=== PATIENT | male | born 1980 | race Caucasian/White ===

== ENCOUNTER 2023-04-19 08:31 | Outpatient (CLI) | payer BC, SELFPAY | END 2023-04-19 08:32 | disposition home or self-care (01) | PROVIDERS: PCP Family Medicine; Visit Provider Family Medicine | DX: E78.2 Mixed hyperlipidemia (principal) | CPT/HCPCS: 80048; 80061 ==

== ENCOUNTER 2025-04-14 15:43 | Outpatient (CLI) | payer OTHER, SELFPAY ==
[2025-04-14 23:18] LABS: Chlamydia DNA Amplified* NOT DETECTED (No Detected); GC DNA Amplified* NOT DETECTED (No Detected)
== END 2025-04-14 15:44 | disposition home or self-care (01) ==
PROVIDERS: PCP Family Medicine; Visit Provider Physician Assistant
DX: R30.0 Dysuria (principal)
CPT/HCPCS: 87491; 87591

== ENCOUNTER 2025-04-14 15:43 | Outpatient (CLI) | payer OTHER, SELFPAY | END 2025-04-14 15:44 | disposition home or self-care (01) | LOC: NFLDREF 15:46 | PROVIDERS: PCP Family Medicine; Visit Provider Physician Assistant | DX: R30.0 Dysuria (principal); K46.9 Unspecified abdominal hernia without obstruction or gangrene; Z71.1 Person with feared health complaint in whom no diagnosis is made | CPT/HCPCS: 86703; 86780 ==

== ENCOUNTER 2025-04-20 14:26 | Emergency (ER) | payer OTHER, SELFPAY ==
--- OUTSIDE RECORDS SUMMARY | 2025-04-20 14:31 | XMS_ITS | Clinical Summary ---
Author Organization [facility] Address [address] [place] [address] Care Team Providers Care Civil Preparedness Coordinator Name Role Phone Kenney Mendoza MD Primary Care Provider [phone] Allergies Active AllergyReactionsCriticalityNoted DateCommentsDust MitesRunny Nose,Itching 03/30/2022 Medications MedicationSigDispense QuantityRefillsLast FilledStart DateEnd DateStatus VENTOLIN HFA 90 mcg/actuation inhaler 2 Puffs every 4 hours if needed.02/02/2020Active fluticasone furoate-vilanteroL (BREO ELLIPTA) 200mcg/25mcg inhaler Inhale 1 Dose by mouth.01/27/2020Active LORazepam (ATIVAN) 0.5 mg tab Take 0.5 mg by mouth every 8 hours if needed.11/13/2019Active FLUoxetine (PROZAC) 20 mg capsule Take 20 mg by mouth once daily.03/09/2022ctive Breztri Aerosphere 160-9-4.8 mcg/actuation HFAA INHALE 2 INHALATIONS TWO TIMES A DAY4Active Active Problems No known active problems Social History Tobacco UseTypesPacks/DayYears UsedDateSmoking Tobacco: NeverSmokeless Tobacco: NeverSocial ConnectionsAnswerDate RecordedFrequency of Communication with Friends and FamilyNot on file04/30/2021Financial Resource StrainAnswerDate RecordedDifficulty of Paying Living ExpensesNot on file04/30/2021ifficulty of Paying Living ExpensesNot on file04/30/2021ex and Gender InformationValueDate RecordedSex Assigned at BirthNot on fileLegal OkyWjfw75/13/2020 8:19 AM OFFICE COMMUNICATION PROFESSOR Gender IdentityNot on fileSexual OrientationNot on file Last Filed Vital Signs Vital SignReadingTime TakenCommentsBlood Gnhzvooc068/9911 11:38 AM OFFICE COMMUNICATION PROFESSOR Clgcc002403/08/2024 11:38 AM TPSDzdgafnxbiq76.2 ??C (97.1 ??F)03/08/2024 11:38 AM CSTRespiratory Iqvw810005/08/2023 11:38 AM CSTOxygen Bhvrxdkjma53%03/08/2024 11:38 AM CSTInhaled Oxygen Concentration--Jmuxpa33 kg (156 lb 9.6 oz)06/30/2023 4:14 PM JCCKzwgun302.3 cm (5' 9)03/30/2022 9:42 AM CSTBody Mass Index23.13105/31/2021 9:42 AM OFFICE COMMUNICATION PROFESSOR Plan of Treatment Health MaintenanceDue DateLast DoneCommentsTetanus juajpwr7004/09/1991Depression screening for age 12+1992HIV for age 15-6504/09/1995BMI (ht and wt on same day) for age 18+1998Hepatitis C screening for age 18-7904/09/1998Hepatitis B series for 19+ (1 of 3 - 19+ 3-dose series)1999HPV series for age 9-45 (1 - 3-dose SCDM series)2007COVID-19 vaccine series (2024-26 season) 510/, 10/25/2021, 04/19/2021, Additional history existsInfluenza Vaccine (#1)5Colonoscopy through age 7504/09/2025Lipids for age 45-75 2025Pneumococcal series for age 6-49Aged OutNo longer eligible based on patient's age to complete [place] [address] * Guarantor: Uche Ruiz DAccount TypeRelation to PatientDate of BirthPhone Billing AddressMotor DpgepqwFvqt1980 [id number] [address] [address] Care Teams Team MemberRelationshipSpecialtyStart [place] [address] [place] [address] [id number] PCP - Lsghsrz81/13/20
--- OUTSIDE RECORDS SUMMARY | 2025-04-20 14:31 | XMS_ITS | Clinical Summary ---
Author Organization [facility] Address [address] [place] [address]. [place] [address] Care Team Providers Care Tieing Machine Operator Name Role Phone Kenney Mendoza MD Primary Care Provider [phone] Allergies No known active allergies Social History Tobacco UseTypesPacks/DayYears UsedDateSmoking Tobacco: Never AssessedSex and Gender InformationValueDate RecordedSex Assigned at BirthNot on fileLegal Sex Male04/25/2012 7:08 PM CSTGender IdentityNot on fileSexual OrientationNot on file Last Filed Vital Signs Vital SignReadingTime TakenCommentsBlood Syasjrux372/9007 10:00 AM CDT Pizdg6091/15/2020 10:00 AM TVCYpwtpqrmtgb20.9 ??C (98.5 ??F)11/12/2019 8:48 AM CDTRespiratory Rvbd053311/12/2019 8:48 AM CDTOxygen Thmhyijlsm46%11/12/2019 10:00 AM CDTInhaled Oxygen Concentration--Sfaxes60.5 kg (140 lb)11/12/2019 8:48 AM CDT Utqrlw232.3 cm (5' 9)11/12/2019 8:48 AM CDTBody Mass Index20.6707 8:48 AM CDT Plan of Treatment Not on file Insurance * Guarantor: Donta Ruiz TypeRelation to PatientDate of BirthPhone Billing AddressPersonal/SnrymxMmvo1980 [id number] [address] [place] [address] Care Teams Team MemberRelationshipSpecialtyStart DateEnd Date Kenney Mendoza MD [facility]
--- OUTSIDE RECORDS SUMMARY | 2025-04-20 14:31 | XMS_ITS | Clinical Summary ---
Author Organization [facility] Address [address] [place] [address] Care Team Providers Care Tube Drawer Name Role Phone Kenney Mendoza MD Primary Care Provider [phone] Source Comments You are receiving this document as you are listed as the primary care provider,follow-up provider, or the patient has been referred to you for consultation.This is in compliance with the Medicare andDay[facility] Hospitalcaid EHR Incentive Program,which states Providers who transition their patient to another setting of careor provider of care or refers their patient to another provider of care shouldprovide summary care record for each transition of care or referral. [employer] Allergies No known active allergies Medications MedicationSigDispense QuantityRefillsLast FilledStart DateEnd DateStatus cetirizine (ZYRTEC) 10 MG tablet Take 10 mg by mouth daily (every 24 hours).07/13/2015Active ALBUterol sulfate HFA 108 (90 Base) MCG/ACT inhaler Inhale 2 Puffs every 4 hours as needed (Inhale 2 puffs every 4 hours as needed.). 1 Each Active FLUoxetine (PROZAC) 20 MG capsule Indications:DIMAS (generalized anxiety disorder) (HRC)Take 1 Capsule by mouth daily. 90 Capsule Active LORazepam (ATIVAN) 0.5 MG tablet Indications:DIMAS (generalized anxiety disorder) (HRC)Take 1 Tablet by mouth every 8 hours as needed for Anxiety. 10 Tablet 1Active fluticasone-vilanterol (BREO ELLIPTA) 200-25 MCG/INH inhaler Inhale 1 Dose daily. 1 Each 1Active Active Problems ProblemNoted DateDiagnosed DateGAD (generalized anxiety disorder)04/16/2019House dust mite tdfeocv9411/05/2018Seasonal allergic rhinitis due to xmavvv4011/05/2018 Gallbladder polyp08/26/2018Mild persistent hqjkif5910/24/2010 Overview (03/05/2017): Follows Allergy Resolved Problems ProblemNoted DateDiagnosed DateResolved DateAbnormal LFTs Kphoomcxfvsnt90AnxietyMild intermittent xincra33 Immunizations ImmunizationAdministration DatesNext RoeNBfW7912/06/1984HepA Adult (19+ yrs) 04/17/2019HepB Adult (Engerix-B, 20+ yrs, 3 dose series)06/21/2011,06/21/2011, 10/24/2010,10/24/2010,08/22/2010,08/22/2010Influenza IIV4 (Quadrivalent) 0.5mL (57863)04/17/2019TDAP (BOOSTRIX)08/22/2010Td09/12/2007,09/12/2007Tdap08/22/2010 Typhoid (Typhim Vi, IM)04/17/2019 Family History Medical HistoryRelationNameCommentsAnxietyBirth FatherDepressionBirth Father HyperlipidemiaBirth FatherAnxietyBirth MotherHyperlipidemiaBirth Mother HyperlipidemiaMaternal GrandfatherHyperlipidemiaMaternal Grandmother HyperlipidemiaPaternal GrandfatherHyperlipidemiaPaternal GrandmotherDepression Sister 2hospitalized x 1Cholecystectomy [Other]Sister 3Cancer, BreastNegative Family HistoryGrandmotherRelationNameStatusCommentsBirth FatherAliveBirth Mother AliveMaternal GrandfatherAliveMaternal GrandmotherAlivePaternal GrandfatherAlive Paternal GrandmotherAliveSister 1AliveSister 2Sister 3 Social History Tobacco UseTypesPacks/DayYears UsedDateSmoking Tobacco: NeverSmokeless Tobacco: NeverAlcohol UseStandard Drinks/WeekCommentsYes0 (1 standard drink = 0.6 oz pure alcohol)occPHQ-2AnswerDate RecordedPHQ-2 Zypla573Sex and Gender InformationValueDate RecordedSex Assigned at BirthNot on fileLegal SexMale 02/07/2012 6:16 AM CDTGender IdentityNot on fileSexual OrientationNot on file OccupationIndustryJob Start DateJob End DateComputer ProgrammerNot on fileNot on fileNot on file Last Filed Vital Signs Vital SignReadingTime TakenCommentsBlood Vgxfuyqs750/9303 11:37 AM THEATER COMPANY PRODUCER Efasb383707/02/2019 11:37 AM WAUIjbudqehkgw59.6 ??C (97.8 ??F)04/24/2019 3:46 PM CSTRespiratory Hlsq846107/02/2019 11:37 AM CSTOxygen Huzpedscuz502%04/24/2019 3:46 PM CSTInhaled Oxygen Concentration--Ztypze75.1 kg (141 lb 6.4 oz)06/13/2019 8:19 AM IBLSwqlfm428.3 cm (5' 9)04/21/2020 8:04 AM CSTPt reportedBody Mass Index20.8807 9:10 AM CDT Plan of Treatment Health MaintenanceDue DateLast DoneCommentsColon Cancer Screening Plan Due 1980HIV Screening (Preventive Services)1996Pneumococcal Vaccine (1 of 2 - PCV)1999Adult Preventive VisitCholesterol , 07/04/2011sthma ACT (score of 20 or higher)08/27/2019 08/26/2018, 09/18/2017, 08/29/2016, Additional history existsHepA Vaccine (2 of 2 - Risk 2-dose series)COVID-19 Vaccine ( season) /, 04/19/2021, 09/15/2020, Additional history existsInfluenza Vaccine (#1)511/01/2022, 02/16/2021, 02/14/2020, Additional history existsDTaP/Tdap/Td Vaccine (5 - Tdap), 08/22/2010, 08/22/2010, Additional history existsZoster/Shingles Vaccine (1 of 2)2030 HepB NayolqdAxwtpilnc01/22/2012, 06/21/2011, 10/24/2010, Additional history existsHep C Screening (Preventive Services)Klizrnuny01/30/2014HPV Vaccine (No Doses Required)CompletedHib VaccineAged OutNo longer eligible based on patient's age to complete this topicIPV (Polio) VaccineAged OutNo longer eligible based on patient's age to complete this topicMCV4 VaccineAged OutNo longer eligible based on patient's age to complete this topicMeningococcal B VaccineAged OutNo longer eligible based on patient's age to complete this topic Procedures Procedure NamePriorityDate/TimeAssociated DiagnosisCommentsHEPATITIS PANEL ACUTE WITH REFLEX TO XOTORVOPBPNEMorphaa90/30/2014 8:43 AM CDT Abnormal LFTs LIPID PANEL & DIRECT LDL (IF NEEDED)Fsweget2912/23/2013 8:24 AM CDT Screening, lipid from Last 3 Months or Most Recently Relevant to Health Maintenance Results * HEPATITIS PANEL ACUTE WITH REFLEX TO CONFRIMATION (01/27/2014 8:43 AM CDT) ComponentValueRef RangeTest MethodAnalysis TimePerformed AtPathologist SignatureHepatitis A Virus AB IgMNon ReactNon ReactiveHP CONVERSIONHepatitis B Core IgM AntibodyNegativeNegativeHP CONVERSIONHep B Surf AgNegativeNegativeHP CONVERSIONHepatitis C CdvdyulwEaa-RpowdIle-DfarnjfyVX CONVERSIONSpecimen (Source)Anatomical Location / LateralityCollection Method / VolumeCollection TimeReceived Time01/27/2014 8:43 AM CDT01/27/2014 12:34 PM CDT Narrative Transcriptions 06/08/2016 3:33 PM CSTNotes Recorded by Maryana Camara DO on 01/27/2014 at 3:43 PMResults with interpretation of results released to [employer]. Please see note for further details.Recommend given mild elevation in alt, remainder of testing normal and normal Ultrasound, repeat ALT, AST in 3 months. Authorizing ProviderResult TypeResult StatusSthieu Camara DOLAB_1Final Result Performing OrganizationAddressCity/State/ZIP CodePhone Number HP CONVERSION * Lipid Panel and Direct LDL(If Needed) (12/23/2013 8:24 AM CDT)ComponentValue Ref RangeTest MethodAnalysis TimePerformed AtPathologist SignatureCholesterol 1990 - 200 mg/dLHP EGCKRFHTVAIhdimnjbpjsqu707 - 149 mg/dLHP CONVERSIONHDL Spcglucgstr39>39 mg/dLHP CONVERSIONCholesterol/HDL Ratio Screen3.8HP CONVERSIONLDL Xowvwttlgl71167 - 130 mg/dLHP CONVERSIONHours Rjyzxng22BZ CONVERSIONSpecimen (Source)Anatomical Location / LateralityCollection Method / VolumeCollection TimeReceived Time12/23/2013 8:24 AM CDT12/23/2013 11:57 AM CDT Narrative HP CONVERSION - 12/23/2013 2:44 PM CDT Performed at [facility], [address] [place] [address] Transcriptions 06/08/2016 4:34 PM CSTNotes Recorded by Maryana Camara DO on 12/25/2013 at 8:39 AM- Results with interpretation of results released to [employer]. Please see note for further details. Authorizing ProviderResult TypeResult StatusStaci Alisia Camara DOLAB_1Final Result Performing OrganizationAddressCity/State/ZIP CodePhone Number HP CONVERSION from Last 3 Months or Most Recently Relevant to Health Maintenance Insurance * Guarantor: Uche Ruiz TypeRelation to PatientDate of PhoneBilling AddressPersonal/QuwufiUtmb1980 [address] [place] [address] * Guarantor: Uche Ruiz TypeRelation to PatientDate of PhoneBilling AddressPersonal/PfwdvmQeww1980 [address] [place] [address] * Guarantor: Uche Ruiz TypeRelation to PatientDate of PhoneBilling AddressMVA/EWBBnsh95 1980 [address] [place] [address] Care Teams Team MemberRelationshipSpecialtyStart [place] [address] [place] [address] [facility]11/16/15
[2025-04-20 14:38] VITALS: BP 130/84; PULSE 98; RESP 20; TEMP 36.5; O2SAT 99; BMI 22.4
--- NOTE | 2025-04-20 16:59 | ED_ITS ---
HPI - General Adult General Date Seen: 04/20/25 Chief complaint: Groin Pain Stated complaint: Worsening Hernia Time Seen by Provider: 04/20/25 16:59 Source: patient, RN notes reviewed and old records reviewed Mode of arrival: ambulatory Limitations: no limitations History of Present Illness HPI narrative: Uche is a very pleasant 45-year-old male with history of GERD, hyperlipidemia, recent diagnosis of right inguinal hernia who comes to the [facility] for evaluation regarding increased size of that hernia and some abdominal pain. Uche was scheduled to see the surgeon tomorrow for consultation. Yesterday he noticed that his right groin was somewhat uncomfortable any rated the pain a 1/10. He also noted that the bulging in the groin seems to be larger than before. Today he states the pain is approximately a 3/10, does not change with lying down or standing up but is associated with 2 days of constipation, mild upper abdominal discomfort or a dull feeling in the right upper quadrant. Patient denies nausea or vomiting but has had some GERD of which he has a history. He feels of fullness in his lower abdomen but denies any abdominal distension. Related Data Home Medications ?Medication ?Instructions ?Recorded ?Confirmed cetirizine 10 mg capsule (Zyrtec) 10 mg PO QDAY 04/20/25 fluorouracil 5 % topical cream 1 applic topical 12/02/24 Previous Rx's ?Medication ?Instructions ?Recorded albuterol sulfate 90 mcg/actuation 2 puff inhalation Q DAY PRN 04/19/23 aerosol inhaler shortness of breath or wheez ing #8.5 grams fluoxetine 20 mg capsule 20 mg PO DAILY #90 caps 03/01 10/21 fluticasone furoate 100 1 inh inhalation QDAY #60 ea 03/25/24 mcg-vilanterol 25 mcg/dose inhalation powder (Breo Ellipta) lorazepam 0.5 mg tablet 0.5 mg PO Q8H PRN anxiety #2 0 tabs 03/26/24 omeprazole 20 mg capsule,delayed 20 mg PO QDAY #90 cap s 12/02/24 release Allergies Allergy/AdvReac Type Severity Reaction Status Date / Time house dust Allergy Mild Congested Verified 04/20/25 14:37 Review of Systems Status of ROS: Reports: 10 or more systems reviewed and unremarkable except as noted in History and below Const: Denies: fever or chills ENMT: Denies: nasal congestion Cardio: Denies: chest pain or lightheadedness Resp: Denies: cough GI: Reports: abdominal pain and constipation; Denies: nausea, vomiting, diarrhea or blood in stool : Denies: painful urination or urinary frequency Musculo: Denies: back pain PFSH PFSH Medical History Mixed hyperlipidemia ?E78.2 - Mixed hyperlipidemia (ICD-10) History of cardiac murmur ?Z86.79 - Personal history of other diseases of the circulatory system (ICD- 10) Generalized anxiety disorder with panic attacks ?F41.1 - Generalized anxiety disorder (ICD-10) ?F41.0 - Panic disorder [episodic paroxysmal anxiety] (ICD-10) Basal cell carcinoma (BCC) ?C44.91 - Basal cell carcinoma of skin, unspecified (ICD-10) Mild persistent asthma ?J45.30 - Mild persistent asthma, uncomplicated (ICD-10) Family History Family/Other Breast cancer Heart disease Father Prostate cancer, Onset Age: 65 Skin cancer Other Depression Social History Narrative: single, homosexual, no kids, computer systems support specialist, 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[employer], nonsmoker, social EtOH What is your current living situation?: I presently have a place to live Problems where you live: no known problems In the past 12 months, utilities in danger of being shut off: no In past 12 months, lack of transportation kept you from medical appts, meetings, work, or getting things needed for daily living: no In the past 12 mos, have been you worried that your food would run out before you had money to buy more?: never true In the past 12 mos, the food you bought just didn't last and you didn't have money to buy more?: never true Smoking Status: Never smoker How often does anyone, including family, friends and others, physically hurt you : never How often does anyone, including family, friends and others, insult or talk down to you: never How often does anyone, including family, friends and others, threaten you with harm: never How often does anyone, including family, friends and others, scream or curse at you: never Exam Narrative: Exam Narrative: Alert and oriented, very pleasant gentleman in no acute distress. Speech and mentation normal. No respiratory distress. Heart with regular rate and rhythm and lungs are clear. Abdomen is soft. Bowel sounds are present. Right inguinal area shows a plum sized area of fullness upon standing. Much less subtle when laying down. I do palpate this area there is no significant discomfort. Palpation of the right testicle shows no evidence of of bulging or discomfort. Const: Vital Signs, click to edit/add: Vital Signs - 24 hr 04/20/25 14:38 04/20/25 19:31 Temperature 97.7 F Pulse Rate 84 Pulse Rate [Pulse Oximeter] 98 Respiratory Rate 20 16 Blood Pressure 127/91 H Blood Pressure [Ri ght Upper Arm] 130/84 Pulse Oximetry 99 99 Oxygen Delivery Me thod Room Air Room Air Documenting provider has reviewed patient's vital signs: yes Course Course ED Course: At this time patient clearly has right inguinal hernia. It is reducible but my concern is that patient has been constipated and has lower abdominal pain at this time. Do have concern that patient has intermittent obstructive symptoms. He certainly is not vomiting nor does he have a fever. It he cannot recall any specific instance in the last few days where he was lifting or doing exercise that would of increase the size of the hernia. With this in mind I do speak to center consultant Dr. Blanco. At this time plan on IV placement with abdominal and pelvic CT with contrast. Reevaluation(s) Reevaluation #1: Patient stable in the ED. CT notes no significant abnormality except thickened bladder wall. Will order UA Vital Signs Vital signs: Initial Vital Signs Temperature 97.7 F 04/20/25 14:38 Temperature Source Temporal Artery Scan 04/20/25 14:38 Pulse Rate 98 04/20/25 14:38 Respiratory Rate 20 04/20/25 14:38 Blood Pressure 130/84 04/20/25 14:38 Blood Pressure Mean 99 04/20/25 14:38 Pulse Oximetry 99 04/20/25 14:38 Oxygen Delivery Method Room Air 04/20/25 14:38 Vital Signs Temperature 97.7 F 04/20/25 14:38 Pulse Rate 98 04/20/25 14:38 Respiratory Rate 20 04/20/25 14:38 Blood Pressure 130/84 04/20/25 14:38 Pulse Oximetry 99 04/20/25 14:38 Oxygen Delivery Method Room Air 04/20/25 14:38 Temperature 97.7 F 04/20/25 14:38 Pulse Rate 84 04/20/25 19:31 Respiratory Rate 16 04/20/25 19:31 Blood Pressure 127/91 H 04/20/25 19:31 Pulse Oximetry 99 04/20/25 19:31 Oxygen Delivery Method Room Air 04/20/25 19:31 Medications Administered Medications: Discontinued Medications Generic Name Dose Route Start Last Admin Trade Name Freq PRN Reason Stop Dose Admin Sodium Chloride 500 mls @ 500 mls/hr 04/20/25 17:11 04/20/25 19:27 0.9 % Sodium Chloride 500 Ml IV 04/20/25 18:10 Infused .Q1H REYNALDO Infusion Medical Decision Making MDM Narrative Medical decision making narrative: 1. Right inguinal hernia - reassurance and patient may follow up with surgeon as scheduled tomorrow. CT showed small fat containing right inguinal hernia. If Increased bulging, worsening pain or fever occur, recommend returning to the ED tonight. 2. Disposition - reassurance and home at this time. Return as needed. UA collected. I will call patient if positive. Addendum: Neg UA Medical Records Medical records reviewed: Yes I reviewed the patient's medical records Medical records narrative: Reviewed most recent visit in urgent care Lab Data Lab results reviewed: Yes I reviewed the patient's lab results Labs: Lab Results 04/20/25 Range/Units 19:36 Urine Color Yellow (Yellow) Urine Appearance Clear (Clear) Urine pH 7.0 (5.0-8.5) Ur Specific [place] 1.010 (1.000-1.030) Urine Protein Negative (Negative) Urine Glucose (UA) Negative (Negative) Urine Ketones Negative (Negative) Urine Blood Negative (Negative) Urine Nitrite Negative (Negative) Urine Bilirubin Negative (Negative) Urine Urobilinogen 0.2 (0.2-1.0) Ur Leukocyte Esterase Negative (Negative) Urine RBC 0-2 (0-2) Urine WBC 0-2 (0-5) Ur Squamous Epith Cells None (None-Few) Urine Bacteria None (None) Imaging Data CT scan - abdomen: Attestation: I have reviewed the pertinent imaging results. My impression: I do not note obstruction. Radiologist's impression: ower chest: The visualized lower lungs are aerated. No pleural or pericardial effusion. ABDOMEN: Liver: Normal enhancement. Subcentimeter hypodensity in the right hepatic lobe, too small to characterize however statistically a cyst. Gallbladder and biliary: Normal gallbladder without radiopaque stone. Normal caliber bile ducts. Spleen: Normal size and enhancement. Pancreas: Normal enhancement without peripancreatic inflammatory changes or ductal dilatation. Adrenal glands: Normal adrenal glands. Kidneys and ureters: Normal enhancement. No radio-opaque calculi. No hydroureteronephrosis. GI tract: The stomach is relatively decompressed. Normal caliber small and large bowel loops. Normal appendix. Vascular structures: Normal caliber abdominal aorta. Lymph nodes: No lymphadenopathy in the abdomen or pelvis by size criteria. Peritoneum: No free air, free fluid, or focal drainable fluid collection. Tiny fat containing right inguinal hernia. PELVIS: Genitourinary system: Although relatively decompressed there is suggestion of circumferential wall thickening of the urinary bladder. Recommend correlation with urinalysis if not already performed to assess for underlying cystitis. Normal-sized prostate. SKELETAL STRUCTURES AND SOFT TISSUES: No suspicious lytic or blastic lesions. IMPRESSION: No discrete acute process in the abdomen or pelvis. No obstruction. No hydroureteronephrosis. Tiny fat containing right inguinal hernia. Although relatively decompressed there is suggestion of circumferential wall thickening of the urinary bladder. Recommend correlation with urinalysis if not already performed to assess for underlying cystitis. Discharge Plan Discharge Clinical Impression: Hernia, inguinal, right Patient Disposition: Home, Self-Care Condition: Unchanged Instructions: Inguinal Hernia (ED) Additional Instructions: at this time recommend light activity and no heavy lifting of weights. Follow up tomorrow as scheduled with the surgeon. If you suddenly developed increasing pain, inability to push the hernia back in, vomiting or worsening symptoms please come back to the emergency room. Thank you for leaving a urine sample. I will call you if the urine sample suggest evidence of UTI. The urine will be also sent for urine culture and should that be positive you will receive a call in 2-3 days. Prescriptions: No Action albuterol sulfate 90 mcg/actuation HFA aerosol inhaler 2 puff inhalation QDAY PRN (Reason: shortness of breath or wheezing) Qty: 8.5 12RF Zyrtec 10 mg capsule 10 mg PO QDAY fluoxetine 20 mg capsule 20 mg PO DAILY Qty: 90 3RF fluticasone furoate-vilanterol [Breo Ellipta] 100-25 mcg/dose blister with device 1 inh inhalation QDAY Qty: 60 12RF lorazepam 0.5 mg tablet 0.5 mg PO Q8H PRN (Reason: anxiety) Qty: 20 0RF fluorouracil 5 % cream 1 applic topical Rx Instructions: APPLY TO AFFECTED AREAS TWICE DAILY FOR 2-3 WEEKS. REPEAT NEEDED. omeprazole 20 mg capsule,delayed release(DR/EC) 20 mg PO QDAY Qty: 90 3RF Follow Up/Referrals: Kenney Craft MD [Primary Care Provider, Family Practice] Stand Alone Forms: [employer] Info Instructions
--- NOTE | 2025-04-20 17:10 | CRLHL7_ITS ---
For Patients: As a result of the Century Cures Act, medical imaging exams and procedure reports are released immediately into your electronic medical record. You may view this report before your referring provider. If you have questions, please contact your health care provider. INDICATION: HERNIA, GROIN PAIN TECHNIQUE: CT abdomen and pelvis acquired with 75 cc Isovue 370 IV contrast. COMPARISON: None. FINDINGS: Lower chest: The visualized lower lungs are aerated. No pleural or pericardial effusion. ABDOMEN: Liver: Normal enhancement. Subcentimeter hypodensity in the right hepatic lobe, too small to characterize however statistically a cyst. Gallbladder and biliary: Normal gallbladder without radiopaque stone. Normal caliber bile ducts. Spleen: Normal size and enhancement. Pancreas: Normal enhancement without peripancreatic inflammatory changes or ductal dilatation. Adrenal glands: Normal adrenal glands. Kidneys and ureters: Normal enhancement. No radio-opaque calculi. No hydroureteronephrosis. GI tract: The stomach is relatively decompressed. Normal caliber small and large bowel loops. Normal appendix. Vascular structures: Normal caliber abdominal aorta. Lymph nodes: No lymphadenopathy in the abdomen or pelvis by size criteria. Peritoneum: No free air, free fluid, or focal drainable fluid collection. Tiny fat containing right inguinal hernia. PELVIS: Genitourinary system: Although relatively decompressed there is suggestion of circumferential wall thickening of the urinary bladder. Recommend correlation with urinalysis if not already performed to assess for underlying cystitis. Normal-sized prostate. SKELETAL STRUCTURES AND SOFT TISSUES: No suspicious lytic or blastic lesions. IMPRESSION: No discrete acute process in the abdomen or pelvis. No obstruction. No hydroureteronephrosis. Tiny fat containing right inguinal hernia. Although relatively decompressed there is suggestion of circumferential wall thickening of the urinary bladder. Recommend correlation with urinalysis if not already performed to assess for underlying cystitis. Please note that all CT scans at this facility use dose modulation, iterative reconstruction, and/or weight-based dosing when appropriate to reduce radiation dose to as low as reasonably achievable. Dictated by Kenney Johnson MD @ 04/20/2025 7:12:34 PM (Electronically Signed)
[2025-04-20] MEDS: 0.9 % SODIUM CHLORIDE 500 ML 500 ML IV (18:12)
[2025-04-20 19:31] VITALS: BP 127/91; PULSE 84; RESP 16; O2SAT 99
[2025-04-20 19:43] LABS: Appearance Urine Clear (Clear)
== END 2025-04-20 19:42 | disposition home or self-care (01) ==
PROVIDERS: Emergency Provider Family Medicine; PCP Family Medicine
DX: K40.90 Unilateral inguinal hernia, without obstruction or gangrene, not specified as recurrent (principal)
CPT/HCPCS: 74177; 81001; 99284; 99285; J7030; Q9967

== ENCOUNTER 2025-04-21 12:59 | Outpatient (CLI) | payer OTHER, SELFPAY | END 2025-04-21 13:00 | disposition home or self-care (01) | PROVIDERS: PCP Family Medicine; Visit Provider Family Medicine | DX: Z01.818 Encounter for other preprocedural examination (principal); E78.2 Mixed hyperlipidemia; R68.82 Decreased libido | CPT/HCPCS: 80048; 80061; 84403; 84443; 85025 ==

== ENCOUNTER 2025-04-27 09:14 | Day surgery (SDC) | payer OTHER, SELFPAY ==
[2025-04-27] VITALS (11 sets, daily range): BP systolic 112–133; BP diastolic 74–91; PULSE 73–83; RESP 12–21; TEMP 36.6–36.7; O2SAT 98–100; BMI 22.6
[2025-04-27] MEDS: LACTATED RINGERS 1000 ML 1,000 ML 100 ML IV (09:30)
[2025-04-27] MEDS: SODIUM CHLORIDE 0.9 % (FLUSH) 10 ML SYRINGE IVF (09:58)
[2025-04-27] MEDS: BUPIVACAINE 0.25% 30 ML INJECTION (12:20)
--- NOTE | 2025-04-27 12:30 | W.PM.H&PU ---
History & Physical Update History & Physical Update H&P Reviewed and patient assessed: No changes noted
--- NOTE | 2025-04-27 12:30 | PM.GSPRC ---
Operative Note Date of procedure: 04/27/25 Pre-op diagnosis: Right inguinal hernia Post-op diagnosis: Same Type of Procedure: Laparoscopic repair of right inguinal hernia Indications: The patient is a 45-year-old male who noticed a right groin bulge. He knew she thought it might be a lymph node was evaluated. It began to grow quite quickly which prompted him to be seen in the emergency department. There CT showed a fat containing right inguinal hernia. Because of his increase in pain and symptoms, I recommended repair and he agreed to proceed after discussion of risks and benefits Procedure Description: After discussing the risks and benefits of the procedure, the patient signed informed consent.? The operative site was marked and the patient was brought to the operating room and placed on the operating table in supine position.? Care was taken to pad the patient's pressure points.?? The patient was then intubated by anesthesia.?? The operative site was then prepped and draped in the usual sterile fashion.? A time-out was then performed. A curvilinear incision was made below the umbilicus. Dissection was carried down to subcutaneous tissue until the anterior rectus fascia was encountered. This was incised off the midline on the right. The rectus muscle fibers were then retracted exposing the posterior fascia. A port with a dissecting balloon was then introduced into the pre-preperitoneal space. This was inflated under direct vision. The balloon was deflated, removed, and a 10 mm working port was placed. The space was insufflated and a 10 mm 30-degree scope was then advanced into the space. Two 5 mm ports were placed in the midline under direct vision. Dissection began on the right side. Gordo's ligament and the pubic bone were exposed medially. Following this, dissection was carried out laterally. A direct defect was noted. The preperitoneal fat that was contained within the defect was reduced. The tissue was cleared off of pubic bone across the midline. The internal ring was examined. There was no cord lipoma. There was no hernia sac noted here. The peritoneum was dissected free from the cord structures and dissection was also taken out laterally to create a space for mesh. Once this was done, a piece of large Bard 3DMax mesh for the right side was then placed into the abdomen. This was position with a marker pointed medially. This was placed across midline to ensure adequate coverage of the direct defect. Once this was done, a Tacker was used to tack the mesh at Gordo's ligament and also more anteromedially on the abdominal wall medial to the direct defect. Mesh was then held in place while the abdomen was desufflated to ensure that it laid flat. 10 mL of 0.5% Marcaine were instilled into the preperitoneal space through a port. The ports were removed. The fascia from the infraumbilical port was closed with 0 Vicryl. The skin incisions were closed with absorbable subcuticular suture. Sterile dressings were then applied. The scrotum was examined to ensure that both testicles were down. Instrument sponge and needle counts were correct at the end of the case. The patient was then woken and transported to the recovery area in stable condition. ? The patient tolerated the procedure well. Findings: Direct right inguinal hernia Surgeon: Brittnee Eller MD Estimated blood loss (mL): 5 Condition: stable Disposition: PACU
--- NOTE | 2025-04-27 13:18 | SUR.PHASEI ---
patient met discharge criteria per anesthesia
--- NOTE | 2025-04-27 14:39 | P.ANES_ITS ---
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
--- NOTE | 2025-04-27 14:39 | W.ANESCHARGE ---
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
== END 2025-04-27 14:03 | disposition home or self-care (01) ==
PROVIDERS: PCP Family Medicine; Visit Provider Surgery
PROC: (CPT 49650; principal; 2025-04-27 10:45)
DX: K40.90 Unilateral inguinal hernia, without obstruction or gangrene, not specified as recurrent (principal)
CPT/HCPCS: 49650; 00830; 00840; C1781; J0665; J0690; J1100; J1885; J2405; J2704; J3010; J7120